=== PATIENT | male | born 1990 | race Hispanic/Latino ===

== ENCOUNTER 2017-07-27 23:03 | Inpatient (IN) | payer OTHER ==
[2017-07-28 00:17] LABS: Amphetamine Not Detected (NotDetected); Methadone Not Detected (NotDetected); Methamphetamine Not Detected (NotDetected)
[2017-07-28 00:20] LABS: #Basophils 0.1 thou/uL (0.0-0.2); #Eosinphils 0.1 thou/uL (0.0-0.7); #Lymphocytes 1.7 thou/uL (1.20-3.40); #Monocytes 0.5 thou/uL (0.11-0.59); #Neutrophils 6.1 thou/uL (1.40-6.50); %Basophils 0.7 % (0.0-1.0); %Monocytes 5.7 % (0.0-10.0); Hematocrit 44.1 % (42.0-52.0); Mean Platelet Volume 6.9 fL (7.4-10.4); Red Blood Cell (RBC) Count 4.61 mill/uL (4.70-6.10); White Blood Cell (WBC) Count 8.4 thou/uL (4.8-10.8)
[2017-07-28 00:26] LABS: Prothrombin Time 14.2 SEC (12.0-14.7)
[2017-07-28 00:27] LABS: PTT 33.2 SEC (22.9-36.1)
[2017-07-28 00:42] LABS: ALT (SGPT) 16 U/L (8-55); AST (SGOT) 17 U/L (5-34); Alkaline Phosphatase 63 U/L (40-150); Anion Gap 14 mmol/L (10-20); BUN (Urea Nitrogen) 16 mg/dL (8.9-20.6); Bilirubin, Total 2.1 mg/dL (0.2-1.2); CK (CPK) 197 U/L (30-200); Calc. Creatinine Clearance 0 mL/min (70-130); Calcium 9.6 mg/dL (7.8-10.44); Carbon Dioxide 25 mmol/L (22-29); Chloride 104 mmol/L (98-107); Estimated GFR-MDRD Greater than 90; Globulin 3.4 g/dL (2.4-3.5); Magnesium 2.3 mg/dL (1.6-2.6); Protein, Total 8.1 g/dL (6.0-8.3)
[2017-07-28 00:46] LABS: Troponin I Less than 0.010 ng/mL (< 0.028)
[2017-07-28] MEDS ORDERED: Ondansetron ODT 4 MG TAB SL PRN (02:27)
[2017-07-28] MEDS ORDERED: Acetaminophen 325 MG TAB PO PRN ×2 (02:27→03:34)
[2017-07-28] MEDS ORDERED: Ondansetron HCl/PF 4 MG/2 ML Vial IVP PRN ×2 (02:27→03:34)
[2017-07-28] MEDS ORDERED: Enoxaparin Sodium 80 MG/0.8 ML SYRINGE ONE (02:45)
[2017-07-28] MEDS ORDERED: Bisacodyl 5 MG TAB PO PRN (03:34)
[2017-07-28] MEDS ORDERED: Bisacodyl 10 MG SUPP PR PRN (03:34)
[2017-07-28] MEDS ORDERED: Acetaminophen 650 MG Suppository PR PRN (03:34)
[2017-07-28] MEDS ORDERED: Ondansetron ODT 4 MG TAB PO PRN (03:34)
[2017-07-28] MEDS ORDERED: Calcium Carbonate 500 MG ChewTAB PO PRN (03:34)
[2017-07-28] MEDS ORDERED: Enoxaparin Sodium 40 MG/0.4 ML SYRINGE SC SCH (03:45)
[2017-07-28] MEDS ORDERED: Potassium Chloride 20 MEQ TAB PO SCH (03:45)
[2017-07-28 03:47] VITALS: BMI 23.9
[2017-07-28 04:01] LABS: Troponin I 0.015 ng/mL (< 0.028)
[2017-07-28 06:37] LABS: Troponin I Less than 0.010 ng/mL (< 0.028)
--- NOTE | 2017-07-28 06:39 | HP-2 ---
DATE OF ADMISSION: 07/28/2017 LOCATION: [facility]. CODE STATUS: FULL. PRIMARY CARE PHYSICIAN: Pati disla. ATTENDING PHYSICIAN: Dr. Quincy Pennington RESIDENT: Damir Mckeon M.D., PGY1 CHIEF COMPLAINT: Heart palpitating. HISTORY OF PRESENT ILLNESS: This is a 27-year-old male that comes in after starting to exp erience heart palpitations and heart beating really fast. He says this started around 10:00 p.m. at night after he had gotten off of work. He was working at [employer] where he was doing stren uous activity, moving pots, states the only caffeine or any supplement he took, was he took pre-work out around 10:00 a.m. He states that he has never experienced anything like this before. Denied an y chest pain or shortness of breath. Denied any fever, chills, or recent illness. Denies any nause a, vomiting, diarrhea, constipation. He denied any loss of consciousness, dizziness, change in visi on. Denied any symptoms except for that his heart was beating really fast, never had experienced wh en working out. REVIEW OF SYSTEMS: All review of systems negative, unless noted in the HPI. PAST MEDICAL HISTORY: None. PAST SURGICAL HISTORY: None. ALLERGIES: No known drug allergies. MEDICATIONS: None. FAMILY HISTORY: His grandfather had a history of atrial fibrillation. SOCIAL HISTORY: Does not smoke tobacco. Drinks alcohol on occasion and no illicit drug use. PHYSICAL EXAMINATION: VITAL SIGNS: Blood pressure is 135/93, pulse 95, respirations 20, temperature is 98.7, pulse ox 100 % on room air, current weight 69.85. GENERAL: He is alert and oriented x3. Well-developed, well-nourished, appropriately interactive. HEENT: Eyes; conjunctivae within normal limits. NECK: Supple, no lymphadenopathy, no thyromegaly. CARDIOVASCULAR: He is irregularly irregular. Rate is fast. No murmurs, no gallops. Radial pulses , pedal pulses were palpated bilaterally. RESPIRATORY: Normal breathing effort. No retractions. Lungs are clear to auscultation bilaterally . No wheezes, no crackles. SKIN: Warm, dry. No lesions noted. ABDOMEN: Soft, nontender to palpation. Bowel sounds heard in all 4 quadrants. No masses or disten tion. MUSCULOSKELETAL: Moves all extremities bilaterally. Full range of motion. Structure within nemo l limits. NEUROLOGIC: No focal neuro deficits. Sensation within normal limits. PSYCHIATRIC: Appropriate. LABORATORY DATA: White blood cell count 8.4, hemoglobin 15.4, hematocrit 44.1, MCV 95.7, platelets 242. Sodium is 140, potassium 3.4, chloride 104, carbon dioxide 25, BUN 16, creatinine 0.95, glucos e 99, calcium 9.6, total protein is 8.1, albumin is 4.7, alkaline phosphatase of 63, AST 17, ALT 16, total bilirubin is 2.1. CK is 197, CK-MB is 1.4, troponin 0.01. TSH is 0.69. Magnesium is 2.3. PT is 14.2, PTT 33.2. INR is 1.1. BNP is 10. His urine drug screen was negative. EKG; no P waves , irregularly irregular and showed atrial fibrillation. Chest x-ray from our read, no abnormalities noted. Still awaiting official read. ASSESSMENT AND PLAN: 1. New onset atrial fibrillation with rapid ventricular response. We will continue his diltiazem d rip at a rate of 7. We will continue to check telemetry monitoring and adjust drip as needed. We w ill start him on aspirin for clot prevention, we will admit him to telemetry floor for continuous te le monitoring. We will order an echo in the morning to look for any abnormalities. Due to the bord emilia low TSH, we will check a free T3 and T4. 2. Elevated blood pressure. We will continue to monitor his vital signs and may need to start him on some blood pressure medication if blood pressure stays elevated. 3. Elevated bilirubin. We will order a fractionate of the bilirubin. We suspect Gilbert's syndrom e. He is having no abdominal pain and does report being told he has had elevated bilirubin in the p ast and does report some yellowing when he does get stressed. 4. Deep venous thrombosis prophylaxis. We will put him on Lovenox and give him Tums for GI prophyl axis.
[2017-07-28 06:55] LABS: Free T3 3.01 pg/mL (1.71-3.71)
--- NOTE | 2017-07-28 06:56 | PDOC.FM ---
- Subjective Subjective: Pt feels well and denies symptoms of chest pain, heart palpitation, lightheadedness, SOB, n/v. There were no acute events over night. Pt denies taking anything other than a commercial pre workout supplement that he has been taking for ~6 weeks. - Objective Vital Signs & Weight: Vital Signs (12 hours) Temp Pulse Resp BP Pulse Ox 07/28/17 03:13 98.8 F 98 16 120/69 95 Weight Weight 69.264 kg I&O: 07/26/17 07/27/17 07/28/17 06:59 06:59 06:59 Intake Total 261 Output Total 250 Balance 11 Result Diagrams: 07/28/17 00:11 07/28/17 00:11 EKG Reviewed by me: Yes (afib, rate controlled) Phys Exam - Physical Examination Constitutional: NAD HEENT: PERRLA, moist MMs Neck: no nodes, no JVD, full ROM Respiratory: clear to auscultation bilateral Cardiovascular: no significant murmur irregularly irregular Gastrointestinal: soft, non-tender, no distention Musculoskeletal: no edema Neurological: non-focal, normal sensation, moves all 4 limbs Lymphatic: no nodes Psychiatric: normal affect, A&O x 3 Skin: no rash Dx/Plan (1) Atrial fibrillation with rapid ventricular response Code(s): I48.91 - UNSPECIFIED ATRIAL FIBRILLATION Status: Acute (2) Hypokalemia Code(s): E87.6 - HYPOKALEMIA Status: Acute (3) Hyperbilirubinemia Code(s): E80.6 - OTHER DISORDERS OF BILIRUBIN METABOLISM Status: Acute - Plan Plan: 1. New onset A-fib w/RVR -currently rate controlled, generally in the 80s-90s -echo today to evaluate for atrial thrombus -unknown how long pt has been in this rhythm -consider cardioversion pending echo results. Will consult cards -continue to monitor on tele -unknown etiology, at this point most likely reason is related to dietary supplements -trops negative -tsh normal 2. Hypokalemia -being replaced -mild and asymptomatic 3. hyperbilirubinemia -incidental finding -fractionated bili pending -likely Gilbert's given pts history of being told that he had elevated bili in the past.
--- NOTE | 2017-07-28 07:44 | RAD ---
CHEST ONE VIEW: HISTORY: Chest pain. COMPARISON: None. FINDINGS: The lungs are clear. No pneumothorax or effusion. The cardiac silhouette and mediastinal contours are within normal limits. IMPRESSION: No acute intrathoracic abnormality. POS: [facility]
[2017-07-28] MEDS: Aspirin 81 mg Enteric Coated Tablet PO SCH (09:17)
--- NOTE | 2017-07-28 11:40 | HP ---
I have reviewed the history and physical of Dr. Damir Mckeon and agree with his assessment and plan . Briefly, Mr. Burgos is a 27-year-old male who had sudden onset of atrial fibrillation last night. He presented to the ER and was noted to be in atrial fibrillation with rapid ventricular res ponse. He was started on a diltiazem drip and this slowed his rate. PHYSICAL EXAMINATION: GENERAL: This morning he is awake and alert. He is no distress. VITAL SIGNS: His blood pressure is 107/68. He is afebrile, his pulse rate is 89 and irregularly ir regular, respirations 16. ENT: Thyroid is not enlarged. CARDIAC: Heart rhythm is irregularly irregular. The PMI is in the fifth intercostal space at the m idclavicular line. No murmurs noted. LUNGS: Clear to auscultation. No rales, rhonchi or wheezes noted. ABDOMEN: Flat and soft. EXTREMITIES: No edema. NEUROLOGIC: He is awake, alert, no focal deficits. LABORATORY DATA: CBC; hemoglobin 15.4, hematocrit 44.1 with an MCV of 95.7. White count is 8400 wi th a normal differential and normal platelet count. PT is 14.2, INR is 1.1. Chemistries: Sodium 1 40, potassium was slightly low at 3.4, chloride was 104, bicarbonate 25. BUN 16, creatinine 0.95. Liver enzymes are normal except for a slight elevation of total bilirubin of 2.1, likely consistent with Gilbert's syndrome. His troponin levels are all less than 0.01. His free T4 and TSH are nemo l. His urine tox screen is negative. ASSESSMENT: New onset atrial fibrillation; however, currently rate controlled. PLAN: We will consult Cardiology. Given that Mr. Burgos is young, he may be a candidate for conver anupama to normal sinus rhythm.
[2017-07-28] MEDS ORDERED: Digoxin 0.5 MG/2 ML AMP SLOW IVP PRN (13:12)
[2017-07-28] MEDS ORDERED: Digoxin 0.5 MG/2 ML AMP SLOW IVP SCH (13:15)
[2017-07-28 13:55] LABS: Bilirubin, Direct 0.7 mg/dL (0.1-0.3); Bilirubin, Total 2.7 mg/dL (0.2-1.2)
--- NOTE | 2017-07-28 18:42 | CON ---
DATE OF CONSULTATION: 07/28/2017 REFERRING PHYSICIAN: Damir Mckeon MD with the resident service. REASON FOR CONSULTATION: New onset atrial fibrillation with rapid ventricular response. HISTORY OF PRESENT ILLNESS: Mr. Burgos is a 27-year-old gentleman who has no past medical history, presents with sudden onset of a rapid irregular heartbeat with ongoing palpitations. He wa s at work when the symptoms began at the end of a shift. He noticed a rapid heart rate feeling as i f his heart was going to beat out of his chest. He denied any symptoms such as dizziness, shortness of breath, chest pain, syncope, near syncope or other cardiovascular symptoms. He has never had an y medical issues in the past and denies any palpitations prior to this episode. PAST MEDICAL HISTORY: Negative. PAST SURGICAL HISTORY: Negative. ALLERGIES: No known drug allergies. SOCIAL HISTORY: He denies tobacco use, alcohol abuse, recreational drug use. FAMILY HISTORY: Negative with respect to premature atherosclerosis. CURRENT MEDICATIONS: None. REVIEW OF SYSTEMS: As per the history of present illness, remainder of 12 system review is negative . PHYSICAL EXAMINATION: VITAL SIGNS: Blood pressure is 107/68, pulse 89 and irregularly irregular, respiratory rate 16 and nonlabored, temperature 98.1, oxygen saturations 99% on room air. GENERAL: This is a well-developed, well-nourished 27-year-old gentleman, in no acute distr ess. He is alert and oriented x4. He answers questions appropriately. HEENT: The head was atraumatic, normocephalic. Pupils are equally round and reactive. Sclerae and conjunctivae are clear. There are no oral lesions. NECK: Supple. No JVD, thyromegaly, or carotid bruits. CHEST: Symmetrical inspiration and expiration. HEART: Irregularly irregular with no murmur, S3, S4. PMI is nondisplaced. Not enlarged. LUNGS: Clear to auscultation in all rodriguez. No adventitious sounds appreciated. ABDOMEN: Soft, nontender, nondistended, without mass or organomegaly. Bowel sounds are present in all 4 quadrants. No flank bruits auscultated. EXTREMITIES: 2+ pulses noted bilaterally in upper and lower extremities. Strength 5/5 bilaterally. There is no clubbing, cyanosis or edema. NEUROLOGIC: Grossly intact with no focal motor deficits appreciated. DATABASE: EKG reveals rapid atrial fibrillation with nonspecific T changes. LABORATORY DATA: CBC reveals a white count 8, H\T\H 15 and 44, platelet count 242,000. Differentia l white blood cells normal. Red cell indices normocytic. Coagulation studies are normal. Chemistr ies are normal with normal cardiac enzymes serially. Tox screen was negative. ASSESSMENT: 1. New onset atrial fibrillation with rapid ventricular response. 2. Negative past medical history. RECOMMENDATIONS: 1. From a cardiac standpoint, he is stable. His CHADS score is 0. We discussed the underlying ETL of this rhythm abnormality in his age group and have opted to move forward with attempts to cardiov ert him medically using Cardizem and digoxin initially. If this does not work, I will have EP see h im for recommendations after we consider electrical cardioversion under sedation. If he recurs, we will have him see EP definitively for an invasive approach care with ablation and will recommend low dose aspirin daily during the monitoring period. 2. I will consider send him home with a monitor after cardioversion for evaluation for paroxysmal a rrhythmia in the early post-conversion. I will follow along and appreciate the opportunity to parti cipate in his care.
[2017-07-28] MEDS ORDERED: Sodium Chloride 0.9% 20 ML ONE (19:48)
[2017-07-29 06:00] LABS: ALT (SGPT) 11 U/L (8-55); AST (SGOT) 12 U/L (5-34); Alkaline Phosphatase 58 U/L (40-150); Anion Gap 10 mmol/L (10-20); BUN (Urea Nitrogen) 19 mg/dL (8.9-20.6); Bilirubin, Direct 0.8 mg/dL (0.1-0.3); Bilirubin, Total 2.3 mg/dL (0.2-1.2); Calc. Creatinine Clearance 105 mL/min (70-130); Calcium 9.4 mg/dL (7.8-10.44); Carbon Dioxide 26 mmol/L (22-29); Chloride 105 mmol/L (98-107); Estimated GFR-MDRD 89; Globulin 3.2 g/dL (2.4-3.5); Protein, Total 7.4 g/dL (6.0-8.3)
--- NOTE | 2017-07-29 08:01 | PDOC.FM ---
- Subjective Subjective: Pt feels well today and has no specific complaints. All symptoms have resolved. Pt denies chest pain, heart palpitations, SOB, and all other symptoms in ROS. Per tele, pt converted to NSR @ 1900 yesterday. There were no other events last night. - Objective MAR Reviewed: Yes Vital Signs & Weight: Vital Signs (12 hours) Temp Pulse Resp BP BP Pulse Ox 07/29/17 04:00 97.5 F L 72 16 107/70 94 L 07/28/17 23:50 98.6 F 66 16 126/73 96 Weight Weight 67.268 kg I&O: 07/28/17 07/29/17 07/30/17 06:59 06:59 06:59 Intake Total 261 1460 Output Total 250 650 Balance 11 810 Result Diagrams: 07/28/17 00:11 07/29/17 04:50 EKG Reviewed by me: Yes Phys Exam - Physical Examination Constitutional: NAD HEENT: PERRLA, moist MMs Neck: no nodes, no JVD, supple, full ROM Respiratory: clear to auscultation bilateral Cardiovascular: RRR, no significant murmur Gastrointestinal: soft, non-tender, no distention, positive bowel sounds Musculoskeletal: no edema Neurological: non-focal, normal sensation Dx/Plan (1) Atrial fibrillation with rapid ventricular response Code(s): I48.91 - UNSPECIFIED ATRIAL FIBRILLATION Status: Acute (2) Hypokalemia Code(s): E87.6 - HYPOKALEMIA Status: Acute (3) Hyperbilirubinemia Code(s): E80.6 - OTHER DISORDERS OF BILIRUBIN METABOLISM Status: Acute - Plan Plan: 1. New onset A-fib w/RVR -Dr Serrano consulted -converted to NSR in the 50s after 2 doses of Digoxin as ordered by Dr Serrano -echo read pending -continue to monitor on tele -likely dc today 2. Hypokalemia -resolved 3. hyperbilirubinemia -incidental finding -fractionated bili shows indirect hyperbilirubinemia -likely Gilbert's given pts history of being told that he had elevated bili in the past. -fu outpatient
[2017-07-29] MEDS: Aspirin 81 mg Enteric Coated Tablet PO SCH (08:40)
--- NOTE | 2017-07-29 10:34 | PDOC.CTH ---
Cardiology Progress Note - Subjective Rhythm converted to sinus without further PAF. Discussed plan going forward. Denies symptoms currently. ROS negative. - Objective Vital Signs Temp Pulse Resp BP BP Pulse Ox 07/29/17 08:40 98.1 F 82 18 107/56 L 94 L 07/29/17 04:00 97.5 F L 72 16 107/70 94 L 07/28/17 23:50 98.6 F 66 16 126/73 96 Weight 148 lb 4.8 oz 07/28/17 07/29/17 07/30/17 06:59 06:59 06:59 Intake Total 261 1460 Output Total 250 650 Balance 11 810 - Physical Examination General/Neuro: alert & oriented x3, NAD Neck: carotid US brisk, no JVD present Lungs: CTA, unlabored respirations Heart: PMI normal Abdomen: no HSM, NT/ND, soft Extremities: other: (2+ pulses, no edema) Other PE findings: Neuro: no focal motor defs - Telemetry Telemetry Rhythm: sinus rhythm - Labs Result Diagrams: 07/28/17 00:11 07/29/17 04:50 Troponin/CKMB CK-MB (CK-2) 1.4 ng/mL (0-6.6) 07/28/17 00:11 Troponin I Less than 0.010 ng/mL (< 0.028) 07/28/17 06:05 - Assessment/Plan 1. PAF: converted to sinus. Will send event monitor for 2 weeks to evaluate for recurrence with normal daily activities of working out, work activities, etc. If he recurs, will send to EP for consideration for ablation therapy as outpatient. If not, will continue to monitor. He is clear from CV standpoint to be discharged home. No medical therapy recommended for now. Will add meds as outpatient if he shows evidence of recurrent PAF. CHADS = 0.
--- NOTE | 2017-07-29 11:41 | ADD-PRG ---
This is an addendum to the note of Dr. Henri Li. Mr. Burgos is awake and alert this morning, in no distress. He has converted to normal sinus rhythm . Dr. Serrano has ordered an event monitor for the next 2 weeks to evaluate for recurrence. If his at rial fibrillation recurs, he will be sent for electrophysiologic studies to consider ablation therap y. He will be discharged for followup.
[2017-07-29 12:12] VITALS: BP 120/66; TEMP 98.4
--- NOTE | 2017-07-29 15:34 | DIS-2 ---
DATE OF ADMISSION: 07/28/2017 DATE OF DISCHARGE: 07/29/2017 RESIDENT: Henri Li D.O. ADMITTING ATTENDING: Quincy Pennington M.D. DISCHARGE ATTENDING: Quincy Pennington M.D. CONSULTATIONS: Boris Serrano D.O., Cardiology. PROCEDURES: Echocardiogram. PRIMARY DIAGNOSIS: New onset atrial fibrillation with rapid ventricular response. SECONDARY DIAGNOSIS: None. DISCHARGE MEDICATIONS: None. DISCONTINUED MEDICATIONS: None. HOSPITAL COURSE: The patient presented with feelings of palpitations. It was determined the patien t was in atrial fibrillation with a rapid ventricular response. The patient was given multiple one- time doses of diltiazem which did not control the rate. The patient was started on a diltiazem drip which generally controlled the patient's rate in the 80s-90s with periodic rates above 100. An ech ocardiogram was completed that showed a normal left ventricular size, normal left ventricular wall t hickness and EF 60%-65%, normal diastolic function. There was no mention of atrial thrombus. The p atient was cardioverted with digoxin. The patient cardioverted at approximately 7:00 on 07/28/2017 and remained in sinus rhythm, heart rate in 50s-60s with no other symptoms. The patient will be sen t home with an event monitor. He will follow up with Dr. Serrano after 2 weeks with a plan of consulti ng EP if the patient were to convert back to atrial fibrillation; otherwise, there to be no addition al followup assuming a normal monitor. DISPOSITION: Stable. DISCHARGE INSTRUCTIONS: 1. Location: Home. 2. Diet: Regular. 3. Activity: Ad-linda. Follow up with PCP within [address] Raymundo after the monitoring period of 2 weeks.
== END 2017-07-29 12:55 | disposition home or self-care (01) | DRG 310 ==
LOC: ERS 23:03 → 2NO 07-28 01:53
PROVIDERS: ADMIT Family Medicine; ATTEND Family Medicine
DX: I48.0 Paroxysmal atrial fibrillation (principal); E87.6 Hypokalemia; E80.6 Other disorders of bilirubin metabolism; E80.4 Gilbert syndrome
CPT/HCPCS: 36415; 71010; 80053; 80306; 82247; 82553; 83735; 83880; 84439; 84443; 84481; 84484; 85025; 85610; 85730; 93005; 93306; 96365; 96366; 96372; 96376; A4216; J1160; J1650; J7050

== ENCOUNTER 2017-09-01 21:50 | Emergency (ER) | payer OTHER ==
[2017-09-01 22:28] LABS: #Eosinphils 0.1 thou/uL (0.0-0.7); #Lymphocytes 2.6 thou/uL (1.20-3.40); #Monocytes 0.6 thou/uL (0.11-0.59); #Neutrophils 3.8 thou/uL (1.40-6.50); %Basophils 0.5 % (0.0-1.0); %Eosinophils 1.9 % (0.0-10.0); %Lymphocytes 36.1 % (21.0-51.0); %Monocytes 7.9 % (0.0-10.0); Hematocrit 43.7 % (42.0-52.0); Mean Platelet Volume 6.7 fL (7.4-10.4); Red Blood Cell (RBC) Count 4.51 mill/uL (4.70-6.10); White Blood Cell (WBC) Count 7.1 thou/uL (4.8-10.8)
[2017-09-01 22:50] LABS: ALT (SGPT) 22 U/L (8-55); AST (SGOT) 19 U/L (5-34); Alkaline Phosphatase 64 U/L (40-150); Anion Gap 13 mmol/L (10-20); BUN (Urea Nitrogen) 18 mg/dL (8.9-20.6); Bilirubin, Total 1.6 mg/dL (0.2-1.2); CK (CPK) 123 U/L (30-200); Calc. Creatinine Clearance 0 mL/min (70-130); Calcium 9.6 mg/dL (7.8-10.44); Carbon Dioxide 28 mmol/L (22-29); Chloride 103 mmol/L (98-107); Estimated GFR-MDRD 82; Globulin 3.2 g/dL (2.4-3.5); Protein, Total 7.8 g/dL (6.0-8.3)
[2017-09-01 22:53] LABS: Troponin I Less than 0.010 ng/mL (< 0.028)
== END 2017-09-01 23:25 | disposition home or self-care (01) ==
LOC: ERS 21:50
DX: R00.2 Palpitations (principal); I48.91 Unspecified atrial fibrillation; I10 Essential (primary) hypertension
CPT/HCPCS: 36415; 80053; 82550; 82553; 84484; 85025; 93005

== ENCOUNTER 2018-07-08 07:33 | Outpatient (CLI) | payer OTHER ==
--- NOTE | 2018-07-08 11:37 | CT ---
CTA CHEST WITH CONTRAST: INDICATIONS: Scheduled for ablation next week. History of atrial fibrillation. This exam is performed for a preo perative evaluation. TECHNIQUE: Multiple axial tomograms obtained through the chest with emphasis on the heart, with IV enhancement. FINDINGS: There is poor opacification of the thoracic aorta and pulmonary arteries. There is no evidence of th oracic dissection or aneurysmal dilatation. The pulmonary arteries appear unremarkable with no evide nce of proximal pulmonary embolus. The origin of the left main coronary artery and the right coronar y artery are normally positioned. The LAD and circumflex coronary arteries appear unremarkable. The coronary veins appear unremarkable. No anomaly identified. No evidence of coronary artery calcific ation. The lung rodriguez are clear. There is no evidence of adenopathy. The residual soft tissue at the anterior-superior mediastinum would be consistent with residual thymus tissue. IMPRESSION: Unremarkable computed tomography angiography chest. POS: [facility]
[2018-07-08] MEDS ORDERED: Iopamidol 370 76% 100 ML VIAL ONE (12:51)
== END 2018-07-08 07:34 | disposition home or self-care (01) ==
LOC: CT 07:33
PROVIDERS: ATTEND Internal Medicine Cardiovascular Disease
DX: I48.91 Unspecified atrial fibrillation (principal)
CPT/HCPCS: 71275; 80048; 85027; 85610; 85730; 93005; 93010

== ENCOUNTER 2018-07-08 14:40 | Outpatient (CLI) | payer OTHER ==
[2018-07-08 16:04] LABS: Hemoglobin 15.1 g/dL (14.0-18.0); Mean Corpuscular HGB CONC 33.1 g/dL (32.0-36.0); Mean Corpuscular Hemoglobin 31.2 pg (27.0-31.0); Mean Corpuscular Volume 94.5 fL (78.0-98.0); Mean Platelet Volume 7.2 fL (7.4-10.4); Platelet Count 275 thou/uL (130-400); RBC Distribution Width 11.6 % (11.5-14.5); Red Blood Cell (RBC) Count 4.83 mill/uL (4.70-6.10); White Blood Cell (WBC) Count 5.4 thou/uL (4.8-10.8)
[2018-07-08 16:09] LABS: INR-International Normal Ratio 1.1
[2018-07-08 16:10] LABS: PTT 40.1 SEC (22.9-36.1)
[2018-07-08 16:26] LABS: Anion Gap 11 mmol/L (10-20); BUN (Urea Nitrogen) 13 mg/dL (8.9-20.6); Calc. Creatinine Clearance 0 mL/min (70-130); Calcium 9.2 mg/dL (7.8-10.44); Carbon Dioxide 26 mmol/L (22-29); Chloride 106 mmol/L (98-107); Estimated GFR-MDRD Greater than 90; Glucose 93 mg/dL (70-105); Potassium 3.7 mmol/L (3.5-5.1); Sodium 139 mmol/L (136-145)
== END 2018-07-08 14:41 | disposition home or self-care (01) ==
LOC: LABBT 14:40
PROVIDERS: ATTEND Internal Medicine Cardiovascular Disease
DX: Z01.818 Encounter for other preprocedural examination (principal); I48.91 Unspecified atrial fibrillation
CPT/HCPCS: 80048; 85027; 85610; 85730; 93005; 93010

== ENCOUNTER 2018-07-13 05:57 | Observation (INO) | payer OTHER ==
[2018-07-13] MEDS ORDERED: Lidocaine 1% (PF) 30 ML VIAL ONE (07:01)
[2018-07-13] MEDS ORDERED: Heparin 10,000 UNITS/1 ML VIAL ONE (07:27)
[2018-07-13] MEDS ORDERED: Isoproterenol 0.2 MG/1 ML AMP ONE (07:27)
[2018-07-13] MEDS ORDERED: Ondansetron HCl/PF 4 MG/2 ML Vial IVP PRN (07:28)
[2018-07-13] MEDS ORDERED: Promethazine HCl 25 MG/ML VIAL SLOW IVP PRN (07:28)
[2018-07-13] MEDS ORDERED: Ketorolac Tromethamine 30 MG/ML VIAL IVP PRN ×2 (07:28→12:23)
[2018-07-13] MEDS ORDERED: Promethazine HCl 25 MG/ML VIAL IM PRN (07:28)
[2018-07-13] MEDS ORDERED: Midazolam HCl 2 mg/2 ml Vial ONE (07:29)
[2018-07-13] MEDS ORDERED: Heparin 25,000 units/D5W 500 ML ONE (08:09)
[2018-07-13] MEDS ORDERED: Fentanyl 100 MCG/2 ML VIAL ONE (08:09)
[2018-07-13] MEDS ORDERED: Protamine Sulfate 50 MG/5 ML VIAL ONE ×2 (10:41→11:40)
--- NOTE | 2018-07-13 11:55 | OP ---
DATE OF PROCEDURE: 07/13/2018 SURGEON: Dr. Esa Peralta REFERRING PHYSICIAN: Dr. Pb Hanna/Dr. Moe Sánchez PROCEDURE: Radiofrequency ablation/pulmonary venous isolation. REASON FOR PROCEDURE: Mr. Burgos is a 28-year-old young man who has EKG documented paroxysmal atrial fibrillation, extremely rapid rates, highly symptomatic. He opted off antiarrhythmic drug suppression, prefers ablation therapy. The risks and benefits detailed. He has been anticoagulated with Xarelto for over a month. PROCEDURE IN DETAIL: The patient received general anesthesia by the Anesthesia specialist. Esophageal probe was placed to monitor esophageal temperature to minimize thermal trauma to it. The left and right femoral venous area was prepped, draped, anesthetized with subcutaneous lidocaine under ultrasound guidance, both femoral veins were accessed x2. On the left side a Preface sheath was advanced through which a Duodeca catheter was advanced to the CS and right atrial positions and also on the left side, an 11 Syrian sheath was used to advance an ice catheter which was used to monitor transseptal procedure stress left atrial structures and to rule out effusion throughout procedure. Through the right-sided venous access a SL1 ablation transseptal catheter was advanced to the foramen ovale area and with a Veress needle transseptal puncture was performed x2. One of the transseptal accesses were exchanged to a SureFlex deflectable catheter. Through this catheter, a ThermoCool SF peak ablation as well as a deflectable Duodeca Lasso catheter was advanced to the left atrium. 3D map of left atrium was performed delineating all 4 pulmonary veins as well as the left appendage and the rest of the left atrium. A pulmonary venous isolation was performed in all 4 pulmonary veins and a posterior wall isolation also was performed. Due to esophageal heating, minimal posterior wall area was not completely isolated. Isuprel was administered at 20 mcg and any residual recurrent pulmonary venous reconnections were ablated. In the end of the case the lack of effusion was proved by ice catheter stress fluoroscopy. The following findings were found on the basic EP study. The cycle length was 600 milliseconds. AH 151, HV 37. The QRS is narrow at 90 milliseconds. AV toño ERP was 600/300, AV Wenckebach cycle is 220 milliseconds, retrograde Wenckebach cycle is 250 milliseconds, no dual AV toño physiology was seen and central concentric retrograde VA conduction was documented. With burst atrial pacing on isuprel no other tachyarrhythmia's were induced, no atrial fibrillation or flutter was seen. Total number of ablation was 36, total duration of ablation was 21 minutes with 40 regalado average temperatures. The impedance has ranged from 98-165 ohms. CONCLUSION: At this point, protamine was given to reverse, ACT sheaths were pulled in the clinical laboratory science professor. The patient tolerated the procedure well, no complications noted. CONCLUSION: 1. Successful pulmonary venous isolation and posterior wall isolation procedure. 2. No inducible tachyarrhythmia's. Normal AV and sinus toño function noted. 2. No evidence of accessory pathway or dual AV toño physiology is documented. PLAN: Routine postoperative care. Continue anticoagulation for duration of 3 months. MTDD
[2018-07-13 15:59] VITALS: BMI 24.7
[2018-07-13] MEDS ORDERED: PHENYLEPHRINE-NS 100 MCG/ML 10 ML SYRINGE ONE (16:33)
[2018-07-13] MEDS ORDERED: PROPOFOL 200 MG/20 ML VIAL ONE (16:33)
[2018-07-13] MEDS ORDERED: Dexamethasone 20 MG/5 ML VIAL ONE (16:33)
[2018-07-13] MEDS ORDERED: Glycopyrrolate 0.2 MG/ML 5 ML SYRINGE ONE (16:33)
[2018-07-13] MEDS ORDERED: Lidocaine 1% PF 5 ML VIAL ONE (16:33)
[2018-07-13] MEDS ORDERED: Ondansetron HCl/PF 4 MG/2 ML Vial ONE (16:33)
[2018-07-13] MEDS ORDERED: Heparin 30,000 units/30 ml VIAL ONE (16:33)
[2018-07-13] MEDS ORDERED: Rivaroxaban 10 MG TAB PO SCH (21:00)
--- NOTE | 2018-07-14 09:41 | EKG ---
Test Reason : S/P ABLATION Blood Pressure : / mmHG Vent. Rate : 093 BPM Atrial Rate : 093 BPM P-R Int : 144 ms QRS Dur : 094 ms QT Int : 348 ms P-R-T Axes : 083 086 055 degrees QTc Int : 432 ms Normal sinus rhythm Early repolarization T waves prominant anterolaterally with ST slight elevation suggests early repolarization. Normal ECG When compared with ECG of 08-JUL-2018 15:46, (Unconfirmed) Vent. rate has increased BY 35 BPM T wave inversion no longer evident in Anterior leads QT has lengthened Confirmed by JORGE FERGUSON ([id number]) on 07/14/2018 9:40:54 AM Referred By: [facility] Confirmed By:JORGE FERGUSON
--- NOTE | 2018-07-14 09:44 | EKG ---
Test Reason : Blood Pressure : / mmHG Vent. Rate : 093 BPM Atrial Rate : 093 BPM P-R Int : 138 ms QRS Dur : 090 ms QT Int : 338 ms P-R-T Axes : 079 081 045 degrees QTc Int : 420 ms Normal sinus rhythm Normal ECG When compared with ECG of 13-JUL-2018 12:23, (Unconfirmed) No significant change was found Confirmed by JORGE FERGUSON ([id number]) on 07/14/2018 9:44:18 AM Referred By: [facility] Confirmed By:JORGE FERGUSON
[2018-07-14 12:07] VITALS: BP 128/72; TEMP 98.4
--- NOTE | 2018-07-14 14:08 | DIS ---
ADMITTING PHYSICIAN: Dr. Esa Peralta DISCHARGING PHYSICIAN: Dr. Esa Peralta DATE OF ADMISSION: 07/13/2018 DATE OF DISCHARGE: 07/14/2018 CONDITION AT DISCHARGE: Stable. FINAL DIAGNOSIS: Paroxysmal atrial fibrillation. PROCEDURES PERFORMED: Radiofrequency ablation and pulmonary venous isolation. HISTORY OF PRESENT ILLNESS: Mr. Burgos is a pleasant young gentleman who was referred to our service by Dr. Hanna for paroxysmal atrial fibrillation. He had been severely symptomatic with his occurre nces. He elected for ablation over antiarrhythmic therapy and medical management and was admitted on 07/13/2018 for an elective PVAI. During his procedure, he underwent successful pulmonary venous iso lation almost complete posterior wall isolation. He received a total of 21 minute RF energy delivere d. He was not inducible on and off isuprel at end of this procedure and normal AV and sinus toño f unction was noted. There was no accessory pathway or dual AV toño physiology seen during EP study. He has been stable after his procedure. He did have some bilateral groin bleeding initially at the end of his bed rest, which has long since resolved. He has been ambulatory, he is tolerating p.o. in take. He is voiding normally. His vital signs are stable. By telemetry he did have an episode of what appears to be a 2-1 atypical atrial flutter, ventricular rates at 125 beats per minute, although currently he is in sinus rhythm and has largely been in sinus rhythm by telemetry and also by EKG this morning. He is feeling ready to go home. He is not having any shortness of breath. OBJECTIVE: VITAL SIGNS: Temperature 98.4, pulse is 90, blood pressure is 128/72, respirations 16, oxygen is 97% on room air. GENERAL: He is alert and oriented. His speech is clear. His affect is appropriate. NEUROLOGIC: Grossly intact and nonfocal. His gait is stable. NECK: Supple without jugular venous distention. LUNGS: Clear to auscultation bilaterally. His respirations are even and unlabored with good bilater al excursion. HEART: Rate is regularly regular. There is no murmur, rub or gallop appreciated. ABDOMEN: Soft, nontender without palpable masses. Hepatojugular reflux is negative. Bilateral groi n site dressings are clean, dry, and intact. Upon palpation there is no hematoma. The patient does report some tenderness upon palpation. EXTREMITIES: Warm and dry to touch without clubbing, cyanosis or edema. DISCHARGE MEDICATIONS: He will resume the home medications of Xarelto 20 mg p.o. at bedtime, Xanax a s needed. New prescriptions include Carafate 1 gram p.o. q.i.d. x2 weeks, Protonix 40 mg p.o. daily x1 month, L asix 40 mg as needed for shortness of breath and also potassium chloride 20 mEq daily to be taken as needed if taking Lasix for shortness of breath and swelling of the extremities. DISCHARGE INSTRUCTIONS: No lifting more than 15 pounds for the next 1 week. No soaking baths for 1 week. Showering is okay. He may return to work on 07/27/2018 on light duty. The patient will conta ct our office with any concerns in the interim. He has a followup appointment scheduled on 8 at the [facility] location at 9:00 a.m. Questions have been answered. For any further concerns he will contact our office.
== END 2018-07-14 14:46 | disposition home or self-care (01) ==
LOC: CCL 05:57 → 2SW 15:35
PROVIDERS: ADMIT Internal Medicine Cardiovascular Disease; ATTEND Internal Medicine Cardiovascular Disease
PROC: 02583ZZ Destruction of Conduction Mechanism, Percutaneous Approach (ICD-10-PCS; principal; 2018-07-13)
PROC: 4A023FZ Measurement of Cardiac Rhythm, Percutaneous Approach (ICD-10-PCS; 2018-07-13)
PROC: 4A0234Z Measurement of Cardiac Electrical Activity, Percutaneous Approach (ICD-10-PCS; 2018-07-13)
DX: I48.0 Paroxysmal atrial fibrillation (principal); Z79.01 Long term (current) use of anticoagulants; Z79.899 Other long term (current) drug therapy
CPT/HCPCS: 76942; 85347; 90471; 90686; 93005; 93010; 93613; 93623; 93656; 93662; 96374; C1730; C1731; C1732; C1759; C1769; G0008; G0378; J1100; J1644; J1885; J2001; J2250; J2405; J2704; J2720; J3010